=== PATIENT | female | born 1985 | race Caucasian/White ===

== ENCOUNTER 2023-06-15 11:46 | Outpatient (CLI) | payer OTHER, SELFPAY ==
--- NOTE | ~2023-06-15 | MMUS_ITS ---
EXAMINATION: MM diagnostic shefali BI w kristine, US breast BI limited HISTORY: Palpable lumps in the upper outer quadrant of the left breast TECHNIQUE: Craniocaudal, mediolateral, and mediolateral oblique 3-D tomosynthesis images of the harshas ts were performed and synthetic 2-D images were generated. CAD analysis was submitted and interpreted . High resolution limited bilateral breast ultrasound was performed. COMPARISON: No prior mammogram is currently available for comparison at this institution BREAST PARENCHYMAL COMPOSITION: There are scattered areas of fibroglandular density. FINDINGS: MAMMOGRAPHIC FINDINGS: Left breast: There appear to be adjacent circumscribed, oval, low density masses in the posterior thi rd of the upper outer quadrant of the breast at the 2:00 location, 10 cm from the nipple correspondin g to the palpable abnormalities of concern. These measure 10 mm x 4 mm and 9 mm x 4 mm. In addition, there is a 4 mm oval, circumscribed, equal density mass in the middle third of the slightly upper inn er breast at the 10:00 location, 5 cm from the nipple. Right breast: No suspicious mass, calcification, or architectural distortion are identified. Right br east asymmetries disperse with spot compression. ULTRASOUND: Right breast: No suspicious cystic or solid mass is identified. Left breast: There is a 4 mm x 2 mm mass in the upper inner quadrant of the breast at the 10:00 locat ion, 6 cm from the nipple with sonographic features consistent with an intramammary lymph node. There are multiple adjacent simple cysts in the upper outer quadrant of the left breast corresponding to t he palpable abnormality of concern. No suspicious cystic or solid mass is identified. IMPRESSION: 1. No mammographic or sonographic evidence of malignancy. 2. Recommend routine screening mammography in one year. BI-RADS Category 2: Benign finding(s). Reviewed, dictated and finalized at location [facility]. IMPRESSION: 1. No mammographic or sonographic evidence of malignancy. 2. Recommend routine screening mammography in one year. BI-RADS Category 2: Benign finding(s).
== END 2023-06-15 11:47 | disposition home or self-care (01) ==
LOC: ANHIMG 11:49
PROVIDERS: PCP Physician Assistant Medical; Visit Provider Nurse Practitioner
DX: N63.22 Unspecified lump in the left breast, upper inner quadrant (principal); N60.02 Solitary cyst of left breast
CPT/HCPCS: 76642; 77062; 77066; G0279